=== PATIENT | male | born 1950 | race African-American/Black ===

== ENCOUNTER 2018-11-14 19:36 | Emergency (ER) | payer OTHER ==
[2018-11-14 19:53] VITALS: BP 111/76; TEMP 97.3; BMI 20.3
[2018-11-14] MEDS ORDERED: ONDANSETRON 4 MG/2 ML VIAL IVPUSH ONE (21:35)
[2018-11-14] MEDS ORDERED: FAMOTIDINE 20 MG/50 ML IVPB 20 MG/50 ML MG IVPB ONE ×2 (21:35→22:10)
[2018-11-14] MEDS ORDERED: MAG HYDROX/AL HYDROX/SIMETH 30 ML UNIT-DOSE CUP PO ONE (21:35)
[2018-11-14] MEDS ORDERED: SODIUM CHLORIDE 1,000 ML IV STA (21:35)
[2018-11-14 21:47] LABS: BASO % 0.3 % (0-2.0); EOS % 0.1 % (0-4.5); HEMATOCRIT 41.1 % (35.4-49); HEMOGLOBIN 14.5 GM/dL (11.7-16.9); MCH 30.7 pg (25.7-33.7); MCHC 35.4 g/dl (32.0-35.9); MEAN CELL VOLUME 86.6 fl (80-96); MEAN PLT VOLUME 8.5 fl (7.5-11.1); MONO % 3.2 % (3.8-10.2); NEUT % 81.4 % (42.8-82.8); PLATELET COUNT 448 K/MM3 (134-434); RBC 4.74 M/mm3 (4.00-5.60); RDW 12.4 % (11.9-15.9); WHITE BLOOD COUNT 9.7 K/mm3 (4.0-10.0)
--- NOTE | 2018-11-14 21:48 | PDOC ---
Attending Attestation - Resident Resident Name: KevEdmundo - ED Attending Attestation I have performed the following: I have examined & evaluated the patient, The case was reviewed & discussed with the resident, I agree w/resident's findings & plan, Exceptions are as noted - HPI HPI: 11/14/18 21:46 68 yo male p/w burning chest pain x 3 days. 8/10 burning in chest,radiating into stomach +SOB,diarrhea no current RX meds social no etoh,no tob 11/15/18 00:50 ekg is nsr @ 76 bpm negative troponin -his symptoms resolved with maalox IMP GERD plan referred to clinic - Physicial Exam PE: 11/15/18 01:21 thin 68 yo male has had days of chest burning head ncat neck supple lungs cta b/l cvs [id number] abd flat,no rebound,no guarding no flank pain skin warm and dry neuro axox4,no gross focal neuro deficits psych appropriate - Medical Decision Making 11/15/18 02:14 pt had no substernal chest pain ,no ekg ischmia,negative trop symptoms resolved with PPI and maalox
--- NOTE | 2018-11-14 21:49 | PDOC ---
History of Present Illness - General Chief Complaint: Chest Pain Stated Complaint: CHEST PAIN Time Seen by Provider: 11/14/18 21:06 History Source: Patient Exam Limitations: No Limitations - History of Present Illness Initial Comments: 11/14/18 21:44 68 yo M with no past medical hx presents to the emergency department with chest pain that began 3 days ago. He states it was intermittent initially lasting seconds in the center of the chest. Since 4am, which awoke him from sleep, he has been having constant, 8/10. burning sensation that radiates to the epigastric region without relief or aggravating factors. Concurrently, he has trapezius pain on the left side also described as burning. Per the patient, he does not have a caser in and denies having a stress test and cath in the past. He has not had this pain in the past. Endorses SOB, diarrhea, nausea, and vomiting (1x episode NBNB this morning). Denies fever, chills, visual changes, abdominal pain, dysuria, hematuria, hematochezia, leg pain/swelling, hx of DVT/ PE, hx of recent travels (last in 3 years), and hormone use. Pmhx: None Shx: None Allergies: States he has an allergy to a medication but does not remember which. Meds: Maalox Social: Denies tobacco, alcohol, and substance abuse. Past History - Past Medical History Allergies/Adverse Reactions: Allergies Allergy/AdvReac Type Severity Reaction Status Date / Time No Allergy Information Allergy Verified 11/14/18 19:53 Available Home Medications: Ambulatory Orders Famotidine [Pepcid -] 20 mg PO DAILY #30 tablet 11/15/18 COPD: No - Suicide/Smoking/Psychosocial Hx Smoking History: Never smoked Review of Systems - Review of Systems Able to Perform ROS?: Yes Is the patient limited Yoruba proficient: No Constitutional: No: Chills, Diaphoresis, Fever, Weakness HEENTM: No: Recent change in vision, Ear Pain, Nose Pain, Throat Pain, Mouth Pain Respiratory: Yes: Shortness of Breath. No: Cough, Hemoptysis Cardiac (ROS): Yes: Chest Pain. No: Lightheadedness, Palpitations, Syncope, Chest Tightness ABD/GI: Yes: Diarrhea, Nausea, Poor Fluid Intake, Vomiting, Indigestion. No: Blood Streaked Bowels, Constipated, Difficulty Swallowing, Poor Appetite, Rectal Bleeding, Tarry Stools : No: Burning, Dysuria, Discharge, Hematuria, Urgency Musculoskeletal: Yes: Neck Pain (left side). No: Back Pain, Joint Pain Integumentary: Yes: Lesions (on the back. old infections. ). No: Bruising, Rash Neurological: No: Headache, Numbness, Tremors, Weakness, Ataxia Psychiatric: No: Stressors Endocrine: No: Unexplained Weight Gain Hematologic/Lymphatic: No: Anemia *Physical Exam - Vital Signs Last Vital Signs Temp Pulse Resp BP Pulse Ox 97.3 F L 95 H 18 111/76 96 11/14/18 19:50 11/14/18 19:50 11/14/18 19:50 11/14/18 19:50 11/14/18 19:50 - Physical Exam General Appearance: Yes: Nourished, Appropriately Dressed. No: Apparent Distress, Intoxicated HEENT: positive: EOMI, BACILIO, Normal Voice, Symmetrical, Hearing Grossly Normal. negative: Pale Conjunctivae, Scleral Icterus (R), Scleral Icterus (L), Muffled /Hoarse voice, Nasal Congestion, Sinus Tenderness, Excessive drooling Neck: positive: Trachea midline. negative: Tender, Lymphadenopathy (R), Lymphadenopathy (L), Tender lateral, Tender midline Respiratory/Chest: positive: Lungs Clear, Normal Breath Sounds. negative: Chest Tender, Respiratory Distress, Accessory Muscle Use Cardiovascular: positive: Regular Rhythm, Regular Rate, S1, S2. negative: Systolic Murmur Gastrointestinal/Abdominal: positive: Normal Bowel Sounds, Flat, Soft. negative : Tender, Distended Lymphatic: negative: Adenopathy Musculoskeletal: positive: Normal Inspection. negative: CVA Tenderness, Vertebral Tenderness Extremity: positive: Normal Capillary Refill, Normal Inspection, Normal Range of Motion. negative: Tender Integumentary: positive: Normal Color, Dry, Warm. 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, Fully Oriented, Alert, Normal Mood/ Affect, Normal Response, Motor Strength 5/5 Moderate Sedation - Procedure Monitoring Vital Signs: Procedure Monitoring Vital Signs Temperature 97.3 F L 11/14/18 19:50 Pulse Rate 95 H 11/14/18 19:50 Respiratory Rate 18 11/14/18 19:50 Blood Pressure 111/76 11/14/18 19:50 O2 Sat by Pulse Oximetry (%) 96 11/14/18 19:50 Heart Score/ECG Review - History History: Slightly suspicious - Electrocardiogram EKG: Normal - Age Age: >/= 65 - Risk Factors Based on the list above the patient has:: No risk factors known - Troponin Troponin: </= normal limit - Score Heart Score - Total: 2 - ECG Intrepretation Comment:: 11/14/18 23:05 ventricular rate 82 bpm, AR is 144 ms, QRS is 80s, and QTc is 427 ms. Normal sinus rhythm without ST elevations and depressions. ED Treatment Course - LABORATORY CBC & Chemistry Diagram: 11/14/18 21:32 11/14/18 21:32 - RADIOLOGY Radiology Studies Ordered: Category Date Time Status CHEST PA & LAT [RAD] Stat Radiology 11/14/18 21:35 Ordered Medical Decision Making - Medical Decision Making 68 yo M with no past medical hx presents to the emergency department with chest pain that began 3 days ago. Initial vitals: Initial Vital Signs Temp Pulse Resp BP Pulse Ox 97.3 F L 95 H 18 111/76 96 11/14/18 19:50 11/14/18 19:50 11/14/18 19:50 11/14/18 19:50 11/14/18 19:50 Work up: ddx: acs, pna, costochondritis vs gastritis vs gerd. symptoms are consistent with gastritis/GERD but concerns for age of ACS. will do ACS rule out. will treat with pepcid, maalox, and zofran. Laboratory Tests 11/14/18 11/14/18 11/14/18 21:32 21:32 21:32 WBC 9.7 RBC 4.74 Hgb 14.5 Hct 41.1 MCV 86.6 MCH 30.7 MCHC 35.4 RDW 12.4 Plt Count 448 H MPV 8.5 Absolute Neuts (auto) 7.9 Neutrophils % 81.4 Lymphocytes % 15.0 Monocytes % 3.2 L Eosinophils % 0.1 Basophils % 0.3 Nucleated RBC % 0 PT with INR 14.20 H INR 1.20 H PTT (Actin FS) 30.3 Sodium Potassium Chloride Carbon Dioxide Anion Gap BUN Creatinine Creat Clearance w eGFR Random Glucose Calcium Total Bilirubin AST ALT Alkaline Phosphatase Creatine Kinase Creatine Kinase Index CK-MB (CK-2) Troponin I Total Protein Albumin Influenza A (Rapid) Negative Influenza B (Rapid) Negative Blood Type Antibody Screen 11/14/18 11/14/18 21:32 21:32 WBC RBC Hgb Hct MCV MCH MCHC RDW Plt Count MPV Absolute Neuts (auto) Neutrophils % Lymphocytes % Monocytes % Eosinophils % Basophils % Nucleated RBC % PT with INR INR PTT (Actin FS) Sodium 132 L Potassium 5.2 H Chloride 98 Carbon Dioxide 25 Anion Gap 10 BUN 16 Creatinine 1.5 H Creat Clearance w eGFR 46.68 Random Glucose 103 Calcium 9.7 Total Bilirubin 0.6 AST 29 ALT 40 Alkaline Phosphatase 123 H Creatine Kinase 236 Creatine Kinase Index 1.0 CK-MB (CK-2) 2.4 Troponin I < 0.02 Total Protein 10.0 H Albumin 4.9 Influenza A (Rapid) Influenza B (Rapid) Blood Type B POSITIVE Antibody Screen Negative elevated creatinine (gave 1000 cc of NS). negative troponins and negative chest xray (no acute pathologies noted). patient had significant reduction in symptoms after treatment with maalox, pepcid, and zofran. likely this is gastric related. will have him follow up with PMD for further care and management. no concerning ekg findings noted (no st elevations or depressions). I discussed the physical exam findings, ancillary test results, and final diagnoses with the patient. I answered all of the patients questions to their satisfaction. The patient was satisfied with the care received and felt comfortable with the discussed discharge and treatment plan and accepted it. They agreed to follow up with their primary medical physical physician within 24 -72 hours after discharge for follow up care and management. Dispo; Discharge *DC/Admit/Observation/Transfer Diagnosis at time of Disposition: GERD (gastroesophageal reflux disease) Qualifiers: Esophagitis presence: without esophagitis Qualified Code(s): K21.9 - Gastro- esophageal reflux disease without esophagitis - Discharge Dispostion Disposition: HOME Condition at time of disposition: Stable Decision to Admit order: No - Prescriptions Prescriptions: Famotidine [Pepcid -] 20 mg PO DAILY #30 tablet - Referrals Referrals: Bridgett Mccormick [Primary Care Provider] - [facility] [place] [facility] [place] [Provider Group] - Patient Instructions Printed Discharge Instructions: DI for Gastritis, DI for Atypical Chest Pain Additional Instructions: you were evaluated in the emergency department for your chest pain. your labs indicate that you did not have myocardial injury. your ekg was normal. your chest xray was normal. please follow up with your primary medical doctor or the doctor provided to you in the discharge papers within 48 hours after discharge. please take the medication prescribed to you as directed. please return to the emergency department if you have worsening symptoms or new concerning symptoms such as tearing chest pain, shortness of breath, and pain radiating down the arms. vous avez t valu aux urgences pour votre douleur thoracique. [facility] labor[facility]ires indiquent que vous n'avez pas subi de lsion du myocarde. ton ekg tone normal. votre radiographie pulmonaire tone normale. veuillez faire un suivi auprs de votre mdecin traitant ou du mdecin gail vous a t fourni dans les feuilles de sortie dans les 48 heures suivant votre sortie. veuillez prendre les mdicaments gail vous ont t prescrits selon les directives. veuillez retourner au service michael urgences si brijesh symptmes s'aggravent ou si vous prsentez de nouveaux symptmes tels que douleurs la poitrine, larmoiement, essoufflement et douleurs dans les bras. - Post Discharge Activity Forms/Work/School Notes: Back to Work
[2018-11-14 22:06] LABS: INR 1.2 (0.83-1.09); PROTHROMBIN TIME (PATIENT) 14.2 SEC (9.7-13.0)
[2018-11-14 22:08] LABS: ACTIVATED PTT 30.3 SECONDS (25.2-36.5)
[2018-11-14] MEDS ORDERED: MAG HYDROX/AL HYDROX/SIMETH 30 ML UNIT-DOSE CUP ONE (22:10)
[2018-11-14] MEDS ORDERED: ONDANSETRON 4 MG/2 ML VIAL ONE (22:10)
[2018-11-14 22:58] LABS: ALBUMIN 4.9 g/dl (3.4-5.0); ALK PHOS 123 U/L (45-117); ANION GAP 10 MMOL/L (8-16); BILIRUBIN,TOTAL 0.6 mg/dL (0.2-1); BLOOD UREA NITROGEN 16 mg/dL (7-18); CALCIUM 9.7 mg/dL (8.5-10.1); CHLORIDE 98 mmol/L (98-107); CO2 25 mmol/L (21-32); CREATININE 1.5 mg/dL (0.55-1.3); GLUCOSE,RANDOM 103 mg/dL (74-106); POTASSIUM 5.2 mmol/L (3.5-5.1); SGOT/AST 29 U/L (15-37); SGPT/ALT 40 U/L (13-61); SODIUM 132 mmol/L (136-145)
[2018-11-15 01:23] VITALS: PULSE 76
--- NOTE | 2018-11-15 16:27 | EKG ---
Test Reason : Blood Pressure : / mmHG Vent. Rate : 076 BPM Atrial Rate : 076 BPM P-R Int : 146 ms QRS Dur : 066 ms QT Int : 384 ms P-R-T Axes : 065 068 066 degrees QTc Int : 432 ms NORMAL SINUS RHYTHM NORMAL ECG NO PREVIOUS ECGS AVAILABLE Confirmed by MD MAXIMINO, THERESA ([id number]) on 11/15/2018 4:26:52 PM Referred By: Confirmed By:THERESA STANTON MD
== END 2018-11-15 01:31 | disposition home or self-care (01) ==
LOC: JER 19:36
PROC: 3E033GC Introduction of Other Therapeutic Substance into Peripheral Vein, Percutaneous Approach (ICD-10-PCS; principal; 2018-11-14)
PROC: 3E0337Z Introduction of Electrolytic and Water Balance Substance into Peripheral Vein, Percutaneous Approach (ICD-10-PCS; 2018-11-14)
DX: K21.9 Gastro-esophageal reflux disease without esophagitis (principal)
CPT/HCPCS: 36415; 71046-TC-FY; 80053; 82550; 82553; 84484; 85025; 85610; 85730; 86850; 86900; 86901; 87804; 93005; 93010; 99282-25; J7030